=== PATIENT | female | born 1975 | race American Indian/Alaskan Native ===

== ENCOUNTER 2021-04-28 08:06 | Emergency (ER) | payer BC ==
[2021-04-28 08:12] VITALS: BP 115/67
--- NOTE | 2021-04-28 10:14 | Emergency Department Report ---
ED Fall HPI - General Chief Complaint: Fall Stated Complaint: 04/27/21 PAIN TAIL BONE Time Seen by Provider: 04/28/21 10:06 Source: patient Mode of arrival: Ambulatory - History of Present Illness Initial Comments: 45-year-old -[place] female presents to the emergency room complaining of tailbone and lower back pain since yesterday after falling down on wet grass. Patient states that she was cutting grass and fell on her bottom. She denies any head injury. She has not taken anything for pain. She denies any past medical history currently takes no medications on a daily basis and has no known drug allergies. Patient states the only medication she takes is on control. Patient reports pain is worse when she sits down. MD Complaint: fall Onset/Timin -: days(s) Fall From: standing When Fall Occurred: # days [employer] (1) Fall Witnessed: no Place Fall Occurred: home Loss of Consciousness: none Prolonged Down Time?: no Symptoms Prior to Fall: none Location: buttocks Severity scale (0 -10): 9 Quality: sharp, stabbing Context: tripped/slipped Associated Symptoms: denies - Related Data Previous Rx's Medication Instructions Recorded Last Taken Type Acetaminophen/Codeine [Tylenol 1 tab PO Q6H PRN #12 tab 04/28/21 Unknown Rx /Codeine # 3 tab] Ibuprofen [Motrin 800 MG tab] 800 mg PO Q8HR PRN #45 tablet 04/28/21 Unknown Rx Allergies Allergy/AdvReac Type Severity Reaction Status Date / Time No Known Allergies Allergy Unverified 08/20/15 18:04 ED Review of Systems ROS: Stated complaint: 04/27/21 PAIN TAIL BONE Other details as noted in HPI Comment: All other systems reviewed and negative ED Past Medical Hx - Past Medical History Previous Medical History?: No - Surgical History Past Surgical History?: No - Social History Smoking Status: Current Every Day Smoker Substance Use Type: Alcohol - Medications Home Medications: Home Medications Medication Instructions Recorded Confirmed Last Taken Type Acetaminophen/Codeine [Tylenol 1 tab PO Q6H PRN #12 tab 04/28/21 Unknown Rx /Codeine # 3 tab] Ibuprofen [Motrin 800 MG tab] 800 mg PO Q8HR PRN #45 tablet 04/28/21 Unknown Rx ED Physical Exam - General Limitations: No Limitations General appearance: alert, in no apparent distress - Head Head exam: Present: atraumatic, normocephalic - Eye Eye exam: Present: normal appearance - ENT ENT exam: Present: mucous membranes moist - Neck Neck exam: Present: normal inspection - Respiratory Respiratory exam: Absent: chest wall tenderness, accessory muscle use - Cardiovascular Cardiovascular Exam: Present: regular rate - Extremities Exam Extremities exam: Present: normal inspection, full ROM - Back Exam Back exam: Present: full ROM - Neurological Exam Neurological exam: Present: alert, normal gait - Psychiatric Psychiatric exam: Present: normal affect, normal mood - Skin Skin exam: Present: warm, dry, intact, normal color. Absent: rash ED Course Vital Signs 04/28/21 08:11 Temperature 99.2 F Pulse Rate 108 H Respiratory 18 Rate Blood Pressure 115/67 [Right] O2 Sat by Pulse 98 Oximetry ED Medical Decision Making - Radiology Data Radiology results: report reviewed Other Patient ID My Comment(s) Study Comments [facility] [address] [place] [address] XRay Report Signed Patient: KEMAR DOHERTY MR #: [id number] : 1975 Acct:[id number] Age/Sex: 45 / F ADM Date: 04/28/21 Loc: ED Attending Dr: Ordering Physician: KENAN MORRELL Date of Service: 04/28/21 Procedure(s): XR spine lumbosacral 2-3V Accession Number(s): [id number] cc: KENAN MORRELL Fluoro Time In Minutes: Lumbar spine 3 views INDICATION: Back pain FINDINGS: Alignment appears normal. Facet hypertrophy L4-5 and L5-S1. No compression fractures seen. IMPRESSION: No acute findings. Signer Name: Andreas Barrett MD Signed: 04/28/2021 10:37 AM Workstation Name: [id number] Transcribed By: CW Dictated By: LA BARRETT MD Electronically Authenticated By: LA BARRETT MD Signed Date/Time: 04/28/21 1037 DD/ 1036 TD/TT: - Medical Decision Making 45-year-old -[place] female presents to the emergency room complaining of tailbone and lower back pain since yesterday after falling down on wet grass. Patient states that she was cutting grass and fell on her bottom. She denies any head injury. She has not taken anything for pain. She denies any past medical history currently takes no medications on a daily basis and has no known drug allergies. Patient states the only medication she takes is on control. Patient reports pain is worse when she sits down. All x-rays are negative. I recommend ibuprofen Tylenol. She can sit on a doughnut. She can get that from [employer] or [employer]. Critical care attestation.: If time is entered above; I have spent that time in minutes in the direct care of this critically ill patient, excluding procedure time. ED Disposition Clinical Impression: Tailbone injury Disposition: - TO HOME OR SELFCARE Is pt being admited?: No Does the pt Need Aspirin: No Condition: Stable Instructions: Tailbone Injury, [id number] Additional Instructions: X-rays are negative for any fractures. I recommend pain medication as prescribed. He can sit on a doughnut which he can purchase from [employer]. Follow-up with your primary care provider or orthopedist. Prescriptions: Ibuprofen [Motrin 800 MG tab] 800 mg PO Q8HR PRN #45 tablet PRN Reason: pain/anti-inflammatory/fever Acetaminophen/Codeine [Tylenol /Codeine # 3 tab] 1 tab PO Q6H PRN #12 tab PRN Reason: Breakthrough Pain Referrals: PRIMARY MD PHONG [Primary Care Provider] - 3-5 Days [facility] TERRY MD [Staff Physician] - 3-5 Days Forms: Work/School Release Form(ED) Time of Disposition: 10:59
--- NOTE | 2021-04-28 10:41 | XRay Report ---
Lumbar spine 3 views INDICATION: Back pain FINDINGS: Alignment appears normal. Facet hypertrophy L4-5 and L5-S1. No compression fractures seen. IMPRESSION: No acute findings. Signer Name: Andreas Barrett MD Signed: 04/28/2021 10:37 AM Workstation Name: [id number]
== END 2021-04-28 11:44 | disposition home or self-care (01) ==
LOC: ED 08:06
DX: S39.92XA Unspecified injury of lower back, initial encounter (principal); W18.39XA Other fall on same level, initial encounter; F17.200 Nicotine dependence, unspecified, uncomplicated; Y93.89 Activity, other specified; Y92.89 Other specified places as the place of occurrence of the external cause; Y99.8 Other external cause status
CPT/HCPCS: 72100; 99283